=== PATIENT | male | born 1980 | race Two or more races ===

== ENCOUNTER 2019-10-06 19:56 | Emergency (ER) | payer SELFPAY ==
[~2019-10-06] VITALS: Ht 149.9 cm; Wt 59.0 kg
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
--- NOTE | 2019-10-06 20:31 | NUR ---
WOUND CARE AT BEDSIDE.
--- NOTE | 2019-10-06 20:50 | NUR ---
PT TO CT VIA NATHANIEL
[2019-10-06] MEDS ORDERED: LIDOCAINE 1%-EPI 1:100,000 20 ML VIAL ONE (21:05)
[2019-10-06] MEDS ORDERED: LIDOCAINE 1%-EPI 1:100,000 50 ML VIAL IJ ONE (21:30)
[2019-10-06] MEDS ORDERED: TDAP [DIPH/PERTUSSIS/TET] 0.5 ML VIAL IM ONE (21:50)
[2019-10-06] MEDS: TDAP [DIPH/PERTUSSIS/TET] 0.5 ML VIAL IM ONE (22:00)
[2019-10-06] MEDS: ACETAMINOPHEN ES 500 MG TABLET PO ONE (22:09)
--- NOTE | 2019-10-06 22:11 | NUR ---
Patient discharged to home in stable condition. Written and verbal after care instructions given. Patient verbalizes understanding of instruction. Patient ambulatory with a steady gait. Instructed patient not to drive. Patient verbalized understanding.
[2019-10-06 22:13] VITALS: BP 129/68
== END 2019-10-06 22:14 | disposition home or self-care (01) ==
LOC: ER 19:59
DX: S01.01XA Laceration without foreign body of scalp, initial encounter (principal); S09.8XXA Other specified injuries of head, initial encounter; R51 Headache; Z23 Encounter for immunization; W18.30XA Fall on same level, unspecified, initial encounter; Y93.89 Activity, other specified; Y92.89 Other specified places as the place of occurrence of the external cause; Y99.8 Other external cause status
CPT/HCPCS: 12002; 70450; 72125; 90471; 90715; 99285; A6403; J3490 ×2; L0172

== ENCOUNTER 2019-10-19 17:11 | Emergency (ER) | payer SELFPAY ==
[~2019-10-19] VITALS: Ht 149.9 cm; Wt 59.0 kg
[2019-10-19 17:20] VITALS: BP 103/77
== END 2019-10-19 17:38 | disposition home or self-care (01) ==
LOC: ER 17:12
DX: S01.01XD Laceration without foreign body of scalp, subsequent encounter (principal); Z60.2 Problems related to living alone; X58.XXXD Exposure to other specified factors, subsequent encounter